=== PATIENT | male | born 1985 | race African-American/Black ===

== ENCOUNTER 2016-12-01 19:04 | Emergency (ER) | payer OTHER ==
[~2016-12-01] VITALS: Ht 180.3 cm; Wt 70.3 kg
[~2016-12-01 19:04] MED LIST: CIPROFLOXACIN500 M1 PO; DOXYCYCLINE 10100 M1 PO; NOHOMEMEDICATIONS; PREDNISONE 20 M20 MG PO; PYRIDIUM200 MG PO
[2016-12-01 20:47] LABS: URINE BILIRUBIN NEGATIVE (Negative); URINE BLOOD NEGATIVE (Negative); URINE COLOR YELLOW; URINE GLUCOSE-RANDOM* NEGATIVE (Negative); URINE KETONES NEGATIVE (Negative); URINE NITRITE NEGATIVE (Negative); URINE PROTEIN (DIPSTICK) NEGATIVE (Negative); URINE SPECIFIC GRAVITY 1.025 (1.003-1.035); URINE UROBILINOGEN 0.2 E.U./dl (0.2-1.0)
[2016-12-01] MEDS ORDERED: FLAGYL500 MG PO (21:34)
[2016-12-01 21:40] VITALS: BP 114/76
== END 2016-12-01 21:41 | disposition home or self-care (01) ==
LOC: ER 19:04
PROVIDERS: Physician Assistant
DX: N34.2 Other urethritis (principal); M41.80 Other forms of scoliosis, site unspecified; D57.80 Other sickle-cell disorders without crisis; F17.210 Nicotine dependence, cigarettes, uncomplicated; F15.10 Other stimulant abuse, uncomplicated